=== PATIENT | male | born 1985 | race Caucasian/White ===

== ENCOUNTER → 2021-08-29 | Outpatient (CLI) | payer OTHER ==
--- NOTE | 2021-08-29 12:46 | RAD ---
EXAM: CHEST 2 VIEWS. HISTORY: Cough, inhalational exposure. COMPARISON: None. FINDINGS: Frontal and lateral views of the chest are obtained. There are no confluent infiltrates. There is no pneumothorax or pleural effusion. The heart is not en larged. IMPRESSION: 1. No confluent infiltrates. Electronically signed by: Lambert Ramos MD (08/29/2021 12:44 PM) [id number]
== END ==
LOC: RAD 11:40
PROVIDERS: ATTEND Nurse Practitioner
DX: R05.9 Cough, unspecified (principal); Z77.29 Contact with and (suspected) exposure to other hazardous substances
CPT/HCPCS: 71046